=== PATIENT | male | born 1940 | race Caucasian/White ===

== ENCOUNTER 2022-06-12 10:40 | Emergency (ER) | payer MEDICARE ==
[~2022-06-12] VITALS: Ht 172.7 cm; Wt 83.9 kg
--- NOTE | 2022-06-12 10:40 | NUR ---
BIBA BLS TO ER BED 11
--- NOTE | 2022-06-12 10:43 | NUR ---
pt biba draw sheeted to bed
[2022-06-12] MEDS ORDERED: MORPHINE SULFATE 4 MG/ML SYR IVP ONE ×2 (10:45→11:40)
[2022-06-12] MEDS ORDERED: ONDANSETRON 4 MG/2 ML VIAL IVP ONE (10:45)
[2022-06-12] MEDS ORDERED: NACL 0.9% 1,000 ML IV ONE ×2 (10:45→12:45)
[2022-06-12 10:46] VITALS: BP 130/80
--- NOTE | 2022-06-12 10:48 | NUR ---
BIBA FROM HOME C/O LLQ SHARP ABD PAIN ONSET 3 HRS AGO. DENIES NVD. DENIES FEVER. AFEBRILE AT BEDSIDE. DENIES TRAUMA OR INJURY TO ABD. HX BLADDER CA 6MONTHS AGO. STATES HEMATURIA PMH: BLADDER CA, HTN, DM
--- NOTE | 2022-06-12 11:47 | NUR ---
PT WENT FOR CT
--- NOTE | 2022-06-12 11:47 | NUR ---
UNABLE TO URINATE AT THIS TIME ERMD AWARE
[2022-06-12 11:53] LABS: BASOPHILS # (AUTO) 0.1 K/uL (0.00-0.22); BASOPHILS % (AUTO) 0.8 % (0.0-2.0); EOSINOPHILS % (AUTO) 0.5 % (0.0-4.0); HEMATOCRIT 35.9 % (36-52); HEMOGLOBIN 12.4 g/dL (12.0-18.0); LYMPHOCYTES % (AUTO) 11.3 % (20.5-51.1); MEAN CORPUSCULAR HEMOGLOBIN 31 pg (27-31); MEAN CORPUSCULAR HGB CONC 35 g/dL (33-37); MEAN CORPUSCULAR VOLUME 88.8 fL (80-94); MONOCYTES # (AUTO) 0.6 K/uL (0.8-1.0); MONOCYTES % (AUTO) 6.6 % (1.7-9.3); NEUTROPHILS # (AUTO) 6.8 K/uL (1.8-7.7); NEUTROPHILS % (AUTO) 80.8 % (42.2-75.2); PLATELET COUNT (AUTO) 165 K/uL (140-450); RED BLOOD CELL COUNT(AUTO) 4.05 MIL/uL (4.20-6.10); RED CELL DISTRIBUTION WIDTH 13.3 % (11.6-13.7); WHITE BLOOD COUNT (AUTO) 8.4 K/uL (4.8-10.8)
[2022-06-12 12:38] LABS: ALBUMIN 3.7 g/dL (3.4-5.0); ANION GAP 18.2 (8-16); ASPARTATE AMINOTRANSFERASE 22 U/L (15-37); CARBON DIOXIDE 23.3 mmol/L (21-32); CHLORIDE 104 mmol/L (98-107); CREATININE 1.3 mg/dL (0.6-1.3); GLUCOSE 230 mg/dL (74-106); POTASSIUM 4.5 mmol/L (3.5-5.1); SODIUM SERUM 141 mmol/L (136-145); TOTAL BILIRUBIN 0.6 mg/dL (0.0-1.0); UREA NITROGEN, BLOOD 23 mg/dL (7-18)
[2022-06-12] MEDS ORDERED: cefTRIAXone 1,000 MG VIAL ONE (13:32)
--- NOTE | 2022-06-12 14:28 | NUR ---
COVID SWAB COLLECTED AND COLLECTED URINE
[2022-06-12 14:33] LABS: APPEARANCE,URINE SL CLOUDY (CLEAR); BILIRUBIN,URINE NEGATIVE (NEGATIVE); BLOOD, URINE 3+ (NEGATIVE); COLOR,URINE BROWN (YELLOW); LEUKOCYTE ESTERASE ,URINE TRACE (NEGATIVE); NITRITE, URINE POSITIVE (NEGATIVE); UGLUCOSE 3+ (NEGATIVE)
[2022-06-12] MEDS ORDERED: NACL 0.9% 500 ML IV ONE (14:35)
[2022-06-12 15:04] LABS: RBC,URINE TOO NUMEROUS TO COUN /HPF (0-5)
[2022-06-12 15:05] LABS: TRICHOMONAS,URINE None Seen /HPF (None Seen); WBC,URINE 20-60 /HPF (0-5); YEAST,URINE None Seen /HPF (None Seen)
[2022-06-12 15:35] VITALS: BP 123/52
--- NOTE | 2022-06-12 15:39 | NUR ---
report given to Derek at [facility] for er to er. ETA BLS transport [id number]. patient signed consent for transport and aware of location
--- NOTE | 2022-06-12 15:50 | NUR ---
pt calm and resting. breathing unlabored. does not appear in distress
--- NOTE | 2022-06-12 16:12 | NUR ---
Patient to be transferred to [facility]. Is being transferred due to insurance cap. Receiving facility has accepting physician and available space. ER physician has signed transfer form. Patient or responsible democrat has agreed to transfer and signed form. Patient belongings inventoried and will be sent with patient. Copy of nursing notes, lab reports, EKG, Physicians Orders and X-rays to be sent with patient. Report called to brad jamil at receiving facility. [facility] has been called for transfer. ETA is now.
== END 2022-06-12 16:12 | disposition short-term general hospital (02) ==
LOC: MED 10:40
DX: N20.0 Calculus of kidney (principal); Z20.822 Contact with and (suspected) exposure to COVID-19; N39.0 Urinary tract infection, site not specified; E87.2 Acidosis; I10 Essential (primary) hypertension; E11.9 Type 2 diabetes mellitus without complications; Z85.51 Personal history of malignant neoplasm of bladder; Z79.4 Long term (current) use of insulin; Z79.899 Other long term (current) drug therapy
CPT/HCPCS: 36415; 71045; 74176; 80053; 81001; 82550; 82553; 83605; 83880; 84484; 85025; 87040; 87086; 87426; 93005; 96365; 96375; 96376; 99291; 99292; J0696; J2270; J2405; Q0092

== ENCOUNTER 2023-12-05 01:56 | Inpatient (IN) | payer MEDICARE ==
[~2023-12-05] VITALS: Ht 177.8 cm; Wt 88.5 kg
[2023-12-05 01:56] VITALS: BP 150/90; PULSE 70; RESP 16; TEMP 98.1; O2SAT 95
[2023-12-05 02:30] VITALS: PULSE 71; RESP 20; O2SAT 98
[2023-12-05] MEDS: ALBUTEROL SULFATE/IPRATROPIU 3 ML SOL IH ONE (02:30)
[2023-12-05 02:47] LABS: BASOPHILS # (AUTO) 0.1 K/uL (0.00-0.22); BASOPHILS % (AUTO) 0.6 % (0.0-2.0); EOSINOPHILS % (AUTO) 0.3 % (0.0-4.0); HEMOGLOBIN 13.2 g/dL (12.0-18.0); LYMPHOCYTES # (AUTO) 0.9 K/uL (2.0-11.5); LYMPHOCYTES % (AUTO) 9.8 % (20.5-51.1); MEAN CORPUSCULAR HEMOGLOBIN 32 pg (27-31); MEAN CORPUSCULAR HGB CONC 36 g/dL (33-37); MONOCYTES % (AUTO) 11.4 % (1.7-9.3); NEUTROPHILS # (AUTO) 7.1 K/uL (1.8-7.7); NEUTROPHILS % (AUTO) 77.9 % (42.2-75.2); PLATELET COUNT (AUTO) 188 K/uL (140-450); RED CELL DISTRIBUTION WIDTH 13.2 % (11.6-13.7); WHITE BLOOD COUNT (AUTO) 9.1 K/uL (4.8-10.8)
[2023-12-05 03:00] LABS: INR 0.94 (0.8-1.2); PARTIAL THROMBOPLASTIN TIME 27.9 secs (22-35.6); PROTHROMBIN TIME 9.9 secs (10.8-13.4)
[2023-12-05] MEDS ORDERED: PIPERACILLIN/TAZOBACTAM 3.375 GM VIAL IV ONE ×2 (03:03→12:28)
[2023-12-05 03:09] LABS: ANION GAP 15.6 (8-16); CALCIUM 8.9 mg/dL (8.5-10.1); CARBON DIOXIDE 24.4 mmol/L (21-32); CHLORIDE 102 mmol/L (98-107); CREATININE 1.2 mg/dL (0.6-1.3); GLUCOSE 193 mg/dL (74-106); SODIUM SERUM 138 mmol/L (136-145); UREA NITROGEN, BLOOD 17 mg/dL (7-18)
[2023-12-05 03:10] LABS: LACTIC ACID 2.2 mmol/L (0.4-2.0)
[2023-12-05] MEDS: PIPERACILLIN/TAZOBACTAM 3.375 GM in DEXT 5% MINI-BAG PLUS 50 ML IV ONE (03:18)
[2023-12-05 03:26] LABS: ALANINE AMINOTRANSFERASE 48 U/L (12-78); ALBUMIN 4.1 g/dL (3.4-5.0); ALKALINE PHOSPHATASE 86 U/L (50-136); ASPARTATE AMINOTRANSFERASE 44 U/L (15-37); BILIRUBIN,DIRECT 0.2 mg/dL (0.0-0.3); CREATINE KINASE, TOTAL 126 U/L (39-308); TOTAL BILIRUBIN 0.6 mg/dL (0.0-1.0); TOTAL PROTEIN, SERUM 7.7 g/dL (6.4-8.2)
[2023-12-05] MEDS: NACL 0.9% 2,000 ML IV ONE (03:26)
[2023-12-05 03:58] LABS: FLU A ANTIGEN negative (NEGATIVE); FLU B ANTIGEN NEGATIVE (NEGATIVE)
[2023-12-05 04:39] LABS: APPEARANCE,URINE CLEAR (CLEAR); BILIRUBIN,URINE NEGATIVE (NEGATIVE); BLOOD, URINE NEGATIVE (NEGATIVE); COLOR,URINE YELLOW (YELLOW); LEUKOCYTE ESTERASE ,URINE NEGATIVE (NEGATIVE); NITRITE, URINE POSITIVE (NEGATIVE); PROTEIN,URINE TRACE (NEGATIVE); UGLUCOSE NEGATIVE (NEGATIVE); UROBILINOGEN,URINE 0.2 EU/dL (0.2 - 1)
[2023-12-05 04:45] LABS: BACTERIA,URINE >30 (MANY) /HPF (None Seen); MUCUS,URINE 1+ /LPF (None Seen); RBC,URINE 0-5 /HPF (0-5); SQUAMOUS EPITHELIAL CELL,UR 0-3 (FEW) /LPF (0-3 (FEW))
[2023-12-05] MEDS ORDERED: DEXTROSE 50% 50 ML SYR IVP PRN (08:20)
[2023-12-05] MEDS ORDERED: ACETAMINOPHEN 325 MG TAB PO PRN (08:20)
[2023-12-05] MEDS: DEXT 5% / NACL 0.45% 1,000 ML IV SCH (08:20)
[2023-12-05] MEDS ORDERED: LORazepam 2 MG/ML VIAL IVP PRN (08:20)
[2023-12-05] MEDS ORDERED: MAG SULF 2000 MG/WATER PREMIX 50 ML IV PRN (08:20)
[2023-12-05] MEDS ORDERED: POTASSIUM CHLORIDE 10 MEQ TABER PO PRN (08:20)
[2023-12-05] MEDS ORDERED: ZOLPIDEM 10 MG TAB PO PRN (08:20)
[2023-12-05] MEDS ORDERED: DOCUSATE SODIUM 100 MG GELCAP PO PRN (08:20)
[2023-12-05] MEDS: BLOOD GLUCOSE MONITORING 1 DEV DEV FS SCH (11:32)
[2023-12-05] MEDS: INSULIN LISPRO SLIDING SCALE 100 UNITS/ML VIAL SUBQ PRN (11:33)
[2023-12-05] MEDS: PIPERACILLIN/TAZOBACTAM 3.375 GM in DEXTROSE 5% 50 ML IV SCH (12:45)
[2023-12-05] MEDS: NACL 0.45% 1,000 ML IV SCH (13:22)
[2023-12-05 17:00] VITALS: PULSE 69; RESP 18; O2SAT 95
[2023-12-05 20:00] VITALS: BP 123/59; PULSE 60; RESP 18; TEMP 99; O2SAT 96
[2023-12-06 04:00] VITALS: BP 125/57; PULSE 69; RESP 18; TEMP 97.7; O2SAT 95
[2023-12-06 06:57] LABS: BASOPHILS % (AUTO) 0.6 % (0.0-2.0); EOSINOPHILS % (AUTO) 0.1 % (0.0-4.0); HEMATOCRIT 34.6 % (36-52); HEMOGLOBIN 12.3 g/dL (12.0-18.0); LYMPHOCYTES # (AUTO) 1.6 K/uL (2.0-11.5); LYMPHOCYTES % (AUTO) 20.2 % (20.5-51.1); MEAN CORPUSCULAR HEMOGLOBIN 32 pg (27-31); MEAN CORPUSCULAR HGB CONC 36 g/dL (33-37); MEAN CORPUSCULAR VOLUME 88.6 fL (80-94); MONOCYTES # (AUTO) 0.8 K/uL (0.8-1.0); MONOCYTES % (AUTO) 9.5 % (1.7-9.3); NEUTROPHILS # (AUTO) 5.7 K/uL (1.8-7.7); NEUTROPHILS % (AUTO) 69.6 % (42.2-75.2); PLATELET COUNT (AUTO) 177 K/uL (140-450); RED BLOOD CELL COUNT(AUTO) 3.91 MIL/uL (4.20-6.10); RED CELL DISTRIBUTION WIDTH 13.1 % (11.6-13.7); WHITE BLOOD COUNT (AUTO) 8.2 K/uL (4.8-10.8)
[2023-12-06 08:00] VITALS: BP 130/83; PULSE 110; RESP 20; TEMP 98.3; O2SAT 95
[2023-12-06 08:08] LABS: ALANINE AMINOTRANSFERASE 43 U/L (12-78); ALBUMIN 3.7 g/dL (3.4-5.0); ALKALINE PHOSPHATASE 77 U/L (50-136); ANION GAP 14.6 (8-16); ASPARTATE AMINOTRANSFERASE 36 U/L (15-37); CARBON DIOXIDE 25.1 mmol/L (21-32); CHLORIDE 103 mmol/L (98-107); CREATININE 1.1 mg/dL (0.6-1.3); GLUCOSE 151 mg/dL (74-106); POTASSIUM 3.7 mmol/L (3.5-5.1); SODIUM SERUM 139 mmol/L (136-145); TOTAL PROTEIN, SERUM 7.4 g/dL (6.4-8.2); UREA NITROGEN, BLOOD 10 mg/dL (7-18)
[2023-12-06] MEDS: ONDANSETRON 4 MG/2 ML VIAL IVP PRN (08:51)
[2023-12-06 12:00] VITALS: BP 125/82; PULSE 98; RESP 20; TEMP 98.5; O2SAT 96
[2023-12-06] MEDS ORDERED: HYDRAGUARD CREAM TP PRN (14:15)
[2023-12-06] MEDS ORDERED: FOAM DRESSING TP PRN (14:15)
[2023-12-06 16:00] VITALS: BP 130/85; PULSE 110; RESP 20; TEMP 98.3; O2SAT 95
[2023-12-06 19:08] VITALS: BP 112/71; PULSE 20; RESP 20; TEMP 98.2
[2023-12-06 20:00] VITALS: RESP 20; O2SAT 95
[2023-12-07] MEDS ORDERED: HYDRAGUARD CREAM TP SCH (01:00)
[2023-12-07] MEDS ORDERED: FOAM DRESSING TP SCH (13:00)
== END 2023-12-06 22:22 | disposition short-term general hospital (02) | DRG 871 ==
LOC: MED 01:56 → MMU 08:19 → MTU 16:52
PROVIDERS: ADMIT Family Medicine; ATTEND Family Medicine
DX: A41.9 Sepsis, unspecified organism (principal); J18.9 Pneumonia, unspecified organism; N39.0 Urinary tract infection, site not specified; E87.20 Acidosis, unspecified; Z20.822 Contact with and (suspected) exposure to COVID-19; R74.01 Elevation of levels of liver transaminase levels; I25.10 Atherosclerotic heart disease of native coronary artery without angina pectoris; I10 Essential (primary) hypertension; E11.65 Type 2 diabetes mellitus with hyperglycemia; J40 Bronchitis, not specified as acute or chronic; I48.91 Unspecified atrial fibrillation; Z95.0 Presence of cardiac pacemaker; Z79.899 Other long term (current) drug therapy
CPT/HCPCS: 36415; 71045; 80048; 80053; 80076; 81001; 82550; 82948; 83605; 83880; 84484; 85025; 85610; 85730; 87040; 87081; 87086; 87186; 93005; 94640; 96365; 99285; J1644; J1815; J2405; J2543; J7060; Q0092